=== PATIENT | female | born 1950 | race African-American/Black ===

== ENCOUNTER → 2021-06-22 | Outpatient (CLI) | payer MEDICARE ==
[~2021-06-22] MED LIST: CITA-108 PO; LORA-1000 PO
== END | disposition home or self-care (01) ==
LOC: RADMN 10:47
PROVIDERS: ATTEND Podiatrist Foot & Ankle Surgery
DX: M20.41 Other hammer toe(s) (acquired), right foot (principal); M21.611 Bunion of right foot; M77.31 Calcaneal spur, right foot; R52 Pain, unspecified; M20.11 Hallux valgus (acquired), right foot
CPT/HCPCS: 73630-TC

== ENCOUNTER → 2023-08-24 | Outpatient (CLI) | payer OTHER, MEDICARE | END | disposition home or self-care (01) | LOC: RADPV 09:35 | PROVIDERS: ATTEND Internal Medicine Nephrology | DX: N28.1 Cyst of kidney, acquired (principal); I12.9 Hypertensive chronic kidney disease with stage 1 through stage 4 chronic kidney disease, or unspecified chronic kidney disease | CPT/HCPCS: 76770 ==